=== PATIENT | male | born 1960 | race Caucasian/White ===

== ENCOUNTER 2019-01-30 14:30 | Outpatient (RCR) | payer BC, SELFPAY | END 2019-02-27 00:01 | LOC: WOUND 14:30 | PROVIDERS: Family Provider Internal Medicine; Visit Provider Nurse Practitioner Family | DX: L89.154 Pressure ulcer of sacral region, stage 4 (principal); F17.200 Nicotine dependence, unspecified, uncomplicated ==

== ENCOUNTER 2019-07-17 07:54 | Outpatient (CLI) | payer BC, SELFPAY ==
--- NOTE | 2019-07-17 08:00 | XR_ITS ---
WS: [id number] LUMBAR SPINE: 5 VIEWS TECHNIQUE: AP, obliques, lateral and L5-S1 spot. HISTORY: BACK PAIN WITH RADICULOPATHY COMPARISON: 07/16/2016 Mild straightening of the normal lumbar lordosis. No fractures. Severe degenerative disc space disease at L5-S1 with facet joint arthritis. Mild progression since th e prior study. Pedicles are all identified. Bilateral foraminal narrowing at L4-5 and L5-S1. At least moderate foraminal stenosis at these levels. SI joints are symmetric bilaterally. No soft tissue abnormalities. XR/XR lumbar spine min 4V [id number] IMPRESSION: 1. Mild progression of degenerative disc disease at L5-S1 and facet arthritis. 2. At least moderate bilateral foraminal stenosis L4-5 and L5-S1. 3. No fracture.
== END 2019-07-17 07:55 | disposition home or self-care (01) ==
LOC: RADWPI 07:58
PROVIDERS: Family Provider Internal Medicine; PCP Internal Medicine; Visit Provider Nurse Practitioner Family
DX: M54.16 Radiculopathy, lumbar region (principal); M51.37 Other intervertebral disc degeneration, lumbosacral region; M48.07 Spinal stenosis, lumbosacral region
CPT/HCPCS: 72114

== ENCOUNTER → 2019-08-22 08:08 | Outpatient (BNVA) | payer BC, SELFPAY | PROVIDERS: Family Provider Internal Medicine; PCP Internal Medicine; Referring Provider Licensed Practical Nurse; Visit Provider Anesthesiology Pain Medicine | DX: M51.17 Intervertebral disc disorders with radiculopathy, lumbosacral region (principal); M54.9 Dorsalgia, unspecified; M62.830 Muscle spasm of back | CPT/HCPCS: 99204 ==

== ENCOUNTER 2019-08-24 09:52 | Outpatient (CLI) | payer BC, SELFPAY ==
--- NOTE | 2019-08-24 10:13 | MR_ITS ---
WS: [id number] MRI LUMBAR SPINE NONCONTRAST TECHNIQUE: Sagittal T1, T2 and STIR imaging. Axial T1 and T2 imaging. CLINICAL INFORMATION: M51.17 Intervertebral disc disorders with radiculopathy, ... COMPARISON: MRI 07/2016 FINDINGS: Mild lumbar curve. No acute compression. Disc bulging worse L4-L5 and L5-S1. L1-L2: Normal. L2-L3: No significant disc bulging. Mild facet arthropathy. Spinal canal and foramen are patent. L3-L4: Mild annular bulging with slight effacement of ventral thecal sac. Mild facet arthropathy. Sma ll bilateral foraminal protrusions with mild bilateral foraminal narrowing. This is worse in the left . Slight contact of the exiting L3 nerve root. Moderate facet arthropathy. L4-L5: Mild disc bulging with moderate central canal stenosis. Impingement on the submandibular reces s bilaterally. Moderate facet arthropathy. Left foraminal protrusion with mild left foraminal narrowi ng. Right foramen is patent. L5-S1: Disc osteophyte complex with endplate ridging. Mild bilateral foraminal narrowing. Impingement on the traversing S1 nerve roots with mild central canal stenosis. Mild facet arthropathy. Visualized pelvic bony structures: Normal. Paravertebral soft tissues: Normal. Left L3 foraminal protrusion is progressed from previous. Other findings are not significantly unchan ged. Partially visualized bladder diverticuli. MR/MR lumbar spine wo con* [id number] IMPRESSION: 1. Moderate central canal stenosis L4-5 with impingement subarticular recess b ilaterally and traversing L5 nerve roots. 2. Left foraminal protrusion L4-5 with a small annular tear and contact of the exiting left L4 nerve root. Recommend correlation for left L4 nerve root sympt oms. 3. Small bilateral foraminal protrusions L3-4 worse in the left with contact o f the exiting left L3 nerve root. 4. Central disc bulging L5-S1 impinges the traversing S1 nerve roots bilateral ly. Mild left greater than right bony foraminal narrowing at this level.
--- NOTE | 2019-08-24 11:00 | XR_ITS ---
WS: [id number] LUMBAR SPINE FLEXION AND EXTENSION TECHNIQUE: 3 views of the lumbar spine: Lateral neutral, flexion, and extension views. CLINICAL INFORMATION: Low back pain COMPARISON: None. FINDINGS: Grade 1 anterolisthesis L4 on L5 measuring 6 mm. This is increased since July 17, 2019. This decreases slightly on flexion to 5.2 mm. This also decreases on extension to 5.4 mm. Mild disc space narrowing L4-L5 and L5-S1. Aortic Calcification. Moderate facet arthropathy L4-L5 and L5-S1. XR/XR lumbar spine f/e only [id number] IMPRESSION: Grade 1 anterolisthesis L4 on L5 in neutral measuring 6.1 mm not significantly changed on flexion-extension.
== END 2019-08-24 09:53 | disposition home or self-care (01) ==
LOC: RADWPI 09:56
PROVIDERS: Family Provider Internal Medicine; PCP Internal Medicine; Visit Provider Licensed Practical Nurse
DX: M51.17 Intervertebral disc disorders with radiculopathy, lumbosacral region (principal)
CPT/HCPCS: 72120; 72148

== ENCOUNTER → 2019-09-04 12:55 | Outpatient (BNVA) | payer BC, SELFPAY | PROVIDERS: Family Provider Internal Medicine; PCP Internal Medicine; Visit Provider Anesthesiology Pain Medicine | DX: M47.816 Spondylosis without myelopathy or radiculopathy, lumbar region (principal); M54.9 Dorsalgia, unspecified | CPT/HCPCS: 64493; 64494; J2001; J3490 ==

== ENCOUNTER → 2019-09-19 10:38 | Outpatient (BNVA) | payer BC, SELFPAY | PROVIDERS: Family Provider Internal Medicine; PCP Internal Medicine; Visit Provider Anesthesiology Pain Medicine | DX: M48.062 Spinal stenosis, lumbar region with neurogenic claudication (principal); M43.16 Spondylolisthesis, lumbar region; M47.816 Spondylosis without myelopathy or radiculopathy, lumbar region; M51.17 Intervertebral disc disorders with radiculopathy, lumbosacral region; M54.9 Dorsalgia, unspecified; M62.830 Muscle spasm of back; Z79.891 Long term (current) use of opiate analgesic | CPT/HCPCS: 99214 ==

== ENCOUNTER → 2019-10-03 13:07 | Outpatient (BNVA) | payer BC, SELFPAY | PROVIDERS: Family Provider Internal Medicine; PCP Internal Medicine; Visit Provider Anesthesiology Pain Medicine | DX: M47.816 Spondylosis without myelopathy or radiculopathy, lumbar region (principal); M48.062 Spinal stenosis, lumbar region with neurogenic claudication; M54.9 Dorsalgia, unspecified | CPT/HCPCS: 64493; 64494; 64495; J3490 ==

== ENCOUNTER → 2019-10-17 09:39 | Outpatient (BNVA) | payer BC, SELFPAY | PROVIDERS: Family Provider Internal Medicine; PCP Internal Medicine; Visit Provider Anesthesiology Pain Medicine | DX: M43.16 Spondylolisthesis, lumbar region (principal); M47.816 Spondylosis without myelopathy or radiculopathy, lumbar region; M48.062 Spinal stenosis, lumbar region with neurogenic claudication; M51.17 Intervertebral disc disorders with radiculopathy, lumbosacral region; M54.9 Dorsalgia, unspecified; M62.830 Muscle spasm of back; Z79.891 Long term (current) use of opiate analgesic | CPT/HCPCS: 99213 ==

== ENCOUNTER → 2019-10-22 14:10 | Outpatient (BNVA) | payer BC, SELFPAY | PROVIDERS: Family Provider Internal Medicine; PCP Internal Medicine; Visit Provider Anesthesiology Pain Medicine | DX: M47.816 Spondylosis without myelopathy or radiculopathy, lumbar region (principal); M48.062 Spinal stenosis, lumbar region with neurogenic claudication; Z79.891 Long term (current) use of opiate analgesic | CPT/HCPCS: 64635; 64636; J1030 ==

== ENCOUNTER → 2019-11-06 12:50 | Outpatient (BNVA) | payer BC, SELFPAY | PROVIDERS: Family Provider Internal Medicine; PCP Internal Medicine; Visit Provider Anesthesiology Pain Medicine | DX: M47.816 Spondylosis without myelopathy or radiculopathy, lumbar region (principal); M48.062 Spinal stenosis, lumbar region with neurogenic claudication; M54.9 Dorsalgia, unspecified; Z79.891 Long term (current) use of opiate analgesic | CPT/HCPCS: 64635; 64636; J1030 ==

== ENCOUNTER → 2019-11-19 11:55 | Outpatient (BNVA) | payer BC, SELFPAY | PROVIDERS: Family Provider Internal Medicine; PCP Internal Medicine; Visit Provider Nurse Practitioner Family | DX: Z11.59 Encounter for screening for other viral diseases (principal) | CPT/HCPCS: 87635 ==

== ENCOUNTER → 2019-11-26 10:20 | Outpatient (BNVA) | payer BC, SELFPAY | PROVIDERS: Family Provider Internal Medicine; PCP Internal Medicine; Visit Provider Anesthesiology Pain Medicine | DX: M48.062 Spinal stenosis, lumbar region with neurogenic claudication (principal); M47.816 Spondylosis without myelopathy or radiculopathy, lumbar region; M43.16 Spondylolisthesis, lumbar region; M51.17 Intervertebral disc disorders with radiculopathy, lumbosacral region; M54.9 Dorsalgia, unspecified; M62.830 Muscle spasm of back; Z79.891 Long term (current) use of opiate analgesic | CPT/HCPCS: 99213 ==

== ENCOUNTER 2019-12-11 15:21 | Outpatient (CLI) | payer BC, SELFPAY ==
--- NOTE | 2019-12-11 15:25 | XRR_ITS ---
PROCEDURE INFORMATION: Exam: XR Abdomen, 1 View Exam date and time: 12/11/2019 3:40 PM Age: 59 years old Clinical indication: Abdominal pain; Generalized; Prior surgery; Surgery type: Hernia mesh TECHNIQUE: Imaging protocol: XR of the abdomen. Views: Frontal supine view of the abdomen. 1 View. COMPARISON: CR XR KUB [id number] 09/27/2018 10:08 AM FINDINGS: Gastrointestinal tract: Normal. No bowel dilation. Bones/joints: Unremarkable. XR/XR abdomen 1V* [id number] IMPRESSION: No acute findings.
== END 2019-12-11 15:22 | disposition home or self-care (01) ==
LOC: RADWPI 15:22
PROVIDERS: Family Provider Internal Medicine; PCP Internal Medicine; Visit Provider Nurse Practitioner Family
DX: R10.32 Left lower quadrant pain (principal)
CPT/HCPCS: 74018

== ENCOUNTER 2019-12-17 08:34 | Emergency (ER) | payer BC, SELFPAY ==
[2019-12-17 08:36] VITALS: BP 148/76; PULSE 68; RESP 16; TEMP 36.6; O2SAT 99; BMI 25.2
--- NOTE | 2019-12-17 08:57 | W.ED.ABDPA2 ---
HPI - Abdominal Pain General: Chief Complaint: Abdominal Pain Stated Complaint: Abdominal Pain Time Seen by Provider: 12/17/19 08:49 History of Present Illness: HPI narrative: 59-year-old male presents emergency room complaining of generalized abdominal pain that began approximately 1 week ago. He was seen a week ago and found to's reportedly have had some microscopic hematuria he denies any dysuria urgency or frequency. He had normal bowel movement this morning he has not had any vomiting or diarrhea continues to have generalized abdominal discomfort refers to the left side of the umbilicus. MD elicited complaint: abdominal pain Pertinent past history: other (Previous abdominal wall hernia repair with mesh) Onset (ago): day(s) (6-7) Pain Consistency: constant Location: Periumbilical (Left side) Quality: cramping and aching Radiation: none Migration to: no migration Exacerbating factors: movement Relieving factors: nothing Associated Symptoms: Denies anorexia, belching, bloating, change in bowel habits, change in stool character, chills, coffee ground emesis, constipation, GI cramping, diarrhea, dyspepsia, dysuria, excessive flatus, fever(s), heartburn, hematochezia, hematuria, hematemesis, fecal incontinence, loose stools, melena, nausea, poor appetite, syncope and vomiting Review of Systems Const: Denies: fever(s) or chills ENMT: Denies: throat pain, ear or mastoid pain, nasal discharge or nasal congestion Card: Denies: syncope Resp: Denies: dyspnea, productive cough or non-productive cough GI: Denies: nausea, vomiting, hematemesis, coffee ground emesis, heartburn, diarrhea, constipation, bloating, GI cramping, belching, excessive flatus, fecal incontinence, change in bowel habits, change in stool character, hematochezia or melena : Denies: dysuria or hematuria Skin/Breast: Denies: rash or pruritus PFSH ED PFSH: Medical History Intervertebral disc disorder with radiculopathy of lumbosacral region Lumbar stenosis with neurogenic claudication Osteoarthritis of lumbar spine Spondylolisthesis at L4-L5 level Surgical History Amputation of digit of right hand H/O hernia repair Family History Grandfather Cancer Social History Smoking and tobacco status: former smoker Second hand smoke exposure: No Alcohol intake: current Household members: significant other Marital status: Life Partner Current occupational status: employed 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 [employer] History of recent travel: No Physical Exam Const: COMMON NORMALS: no acute distress GENERAL APPEARANCE: cooperative and comfortable ORIENTATION/CONSCIOUSNESS: Yes awake, Yes oriented to person, Yes oriented to place and Yes oriented to time HENMT: COMMON NORMALS: normocephalic, atraumatic and hearing grossly normal bilaterally HEAD & SCALP: normocephalic and atraumatic Neck/C-Spine: COMMON NORMALS: no JVD Resp: COMMON NORMALS: normal respiratory effort, No retractions, No use of accessory muscles and clear to auscultation bilaterally AUSCULTATION: clear to auscultation bilaterally Cardio: COMMON NORMALS: no JVD, regular rate, regular rhythm and No murmurs present (Cardio) RATE: regular rate RHYTHM: regular rhythm GI: COMMON NORMALS: Soft to palpation and No hepatosplenomegaly present AUSCULTATION: Yes normoactive bowel sounds PALPATION: Yes Soft to palpation, Yes Tenderness to palpation present (GI) (Diffuse), No Guarding due to palpation present (GI) and Yes No hepatosplenomegaly present Extremity: COMMON NORMALS: normal to inspection, capillary refill normal, no clubbing, cyanosis or edema, no calf tenderness and no pedal edema Neuro: SENSORIUM/ORIENTATION: Yes oriented to person, Yes oriented to place and Yes oriented to time Skin: COMMON NORMALS: no rashes or lesions noted GENERAL SKIN EXAM: no rashes or lesions noted Course Vital Signs: Vital signs: Vital Signs Temperature 97.8 F 12/17/19 08:36 Pulse Rate 75 12/17/19 12:00 Respiratory Rate 12 12/17/19 12:00 Blood Pressure 148/75 12/17/19 12:00 Pulse Oximetry 97 12/17/19 12:00 MDM - Abdominal Pain MDM Narrative: Medical decision making narrative: CT does not show any significant acute intra-abdominal pathology. abdominal pathology. He has asymptomatic cholelithiasis His liver functions are normal and his T bili is normal he does have asymptomatic cholelithiasis. He does have a fat-containing umbilical hernia that is nonreproducible but does not otherwise nontender if he does not manipulate it. We will discharge him refer him to surgery for evaluation for the umbilical hernia return if has further problems Lab Data: Labs: Lab Results 12/17/19 12/17/19 12/17/19 Range/Units 08:59 08:59 08:59 WBC 6.7 (4.0-10.0) 10^3/ uL RBC 4.79 (4.1-5.3) 10^6/u L Hgb 14.4 (11.7-16.6) g/dL Hct 44.4 (42.0-52.0) % MCV 92.7 (80-94) fL MCH 30.1 (28.0-34.0) pg MCHC 32.4 (30.0-36.0) g/dL RDW 13.2 (12.1-15.1) % Plt Count 333 (130-400) 10^3/c mm MPV 9.3 (7.4-10.4) fL Neut % (Auto) 55.6 % Lymph % (Auto) 29.4 % [place] % (Auto) 11.2 % Eos % (Auto) 2.5 % Baso % (Auto) 0.7 % Neut # (Auto) 3.72 (1.8-7.7) 10^3/u L Lymph # (Auto) 2.0 (0.8-4.8) 10^3/u L [place] # (Auto) 0.8 (0.2-0.9) 10^3/u L Eos # (Auto) 0.2 (0.0-0.8) 10^3/u L Baso # (Auto) 0.1 (0.0-0.1) 10^3/u L Nucleated RBC % (a uto) 0 % Nucleated RBCs # 0.0 /100WBC Sodium 138 (136-145) mmol/L Potassium 4.7 (3.5-5.1) mmol/L Chloride 103 (98-107) mmol/L Carbon Dioxide 24 (22-29) mmol/L Anion Gap 15.7 (5-19) BUN 16 (8-23) mg/dL Creatinine 1.1 (0.7-1.2) mg/dL GFR Calculation 68.3 L (90-130) mL/min Glucose 116 H (65-115) mg/dL Calculated Osmolal ity 288 (285-295) mOsm/k g Lactic Acid 1.1 (0.5-2.2) mmol/L Calcium 10.2 (8.5-10.5) mg/dL Total Bilirubin 0.4 (0.15-1.2) mg/dL AST 20 (0-40) U/L ALT 20 (0-41) U/L Alkaline Phosphata se 55 (40-130) IU/L Total Protein 7.2 (6.6-8.7) g/dL Albumin 4.5 (3.5-5.2) g/dL Globulin 2.7 (1.3-4.6) g/dL Lipase 40 (13-60) U/L Urine Color (Yellow) Urine Appearance (CLEAR) Urine pH (5-7) Ur Specific Gravit y (1.005-1.030) Urine Protein (Negative) Urine Glucose (UA) (Normal) Urine Ketones (Negative) Urine Blood (Negative) Urine Nitrate (Negative) Urine Bilirubin (Negative) Urine Urobilinogen (Negative) mg/dL Ur Leukocyte Sanna ase (Negative) 12/17/19 Range/Units 09:29 WBC (4.0-10.0) 10^3/ uL RBC (4.1-5.3) 10^6/u L Hgb (11.7-16.6) g/dL Hct (42.0-52.0) % MCV (80-94) fL MCH (28.0-34.0) pg MCHC (30.0-36.0) g/dL RDW (12.1-15.1) % Plt Count (130-400) 10^3/c mm MPV (7.4-10.4) fL Neut % (Auto) % Lymph % (Auto) % [place] % (Auto) % Eos % (Auto) % Baso % (Auto) % Neut # (Auto) (1.8-7.7) 10^3/u L Lymph # (Auto) (0.8-4.8) 10^3/u L [place] # (Auto) (0.2-0.9) 10^3/u L Eos # (Auto) (0.0-0.8) 10^3/u L Baso # (Auto) (0.0-0.1) 10^3/u L Nucleated RBC % (a uto) % Nucleated RBCs # /100WBC Sodium (136-145) mmol/L Potassium (3.5-5.1) mmol/L Chloride (98-107) mmol/L Carbon Dioxide (22-29) mmol/L Anion Gap (5-19) BUN (8-23) mg/dL Creatinine (0.7-1.2) mg/dL GFR Calculation (90-130) mL/min Glucose (65-115) mg/dL Calculated Osmolal ity (285-295) mOsm/k g Lactic Acid (0.5-2.2) mmol/L Calcium (8.5-10.5) mg/dL Total Bilirubin (0.15-1.2) mg/dL AST (0-40) U/L ALT (0-41) U/L Alkaline Phosphata se (40-130) IU/L Total Protein (6.6-8.7) g/dL Albumin (3.5-5.2) g/dL Globulin (1.3-4.6) g/dL Lipase (13-60) U/L Urine Color Yellow (Yellow) Urine Appearance Clear (CLEAR) Urine pH 5 (5-7) Ur Specific Gravit y 1.015 (1.005-1.030) Urine Protein Neg (Negative) Urine Glucose (UA) Norm (Normal) Urine Ketones Negative (Negative) Urine Blood Neg (Negative) Urine Nitrate Negative (Negative) Urine Bilirubin Neg (Negative) Urine Urobilinogen Norm (Negative) mg/dL Ur Leukocyte Sanna ase Negative (Negative) Discharge Plan Discharge Patient Disposition: Home Clinical Impression: Hernia, umbilical, Asymptomatic cholelithiasis Condition: Stable Prescriptions: No Action tizanidine 4 mg tablet 4 mg PO BID PRN (Reason: muscle spasticity) Qty: 60 RF: 0 losartan 50 mg tablet 50 mg PO DAILY RF: 0 lovastatin 40 mg tablet 40 mg PO DAILY RF: 0 hyoscyamine sulfate 0.125 mg tablet 0.125 mg PO QID RF: 0 pantoprazole 40 mg tablet,delayed release (DR/EC) 40 mg PO DAILY RF: 0 All Day Allergy (cetirizine) 10 mg capsule 10 mg PO DAILY RF: 0 glucosamine sulfate 500 mg capsule 500 mg PO BID RF: 0 omega-3 fatty acids 1,000 mg capsule 1,000 mg PO DAILY RF: 0 aspirin [Adult Aspirin Regimen] 81 mg tablet,delayed release (DR/EC) 81 mg PO DAILY RF: 0 metoprolol succinate 25 mg capsule,sprinkle,ER 24hr 25 mg PO .2 day RF: 0 multivitamin [One-A-Day Essential] Tablet 1 tab PO DAILY RF: 0 acetaminophen [Tylenol Extra Strength] 500 mg tablet 500 mg PO ONCE PRNRF: 0 gabapentin 300 mg capsule 300 mg PO TID MDD 3 Qty: 90 RF: 0 sodium chloride 0.9 % Solution 10 ml epidural ONCE Qty: 1 RF: 0 methylprednisolone acetate [Depo-Medrol] 40 mg/mL suspension 40 mg Infiltration ONCE Qty: 1 RF: 0 lidocaine (PF) 10 mg/mL (1 %) solution 10 mg SUBCUT ONCE Qty: 1 RF: 0 tramadol 50 mg tablet 50 mg PO TID PRN (Reason: pain) Qty: 90 RF: 1 methocarbamol [Robaxin-750] 750 mg tablet 750 mg PO BID Qty: 60 RF: 0 Discharge Orders: Discharge Order (Routine); Ordered 12/17/19 Ordered By: Jeffry Freeman Referrals: Denise Vincent MD [Primary Care Provider] - Patient Instructions: Umbilical Hernia (ED) Activity Restrictions/Additional Instructions: Limit lifting to 10 pounds. Case management will call with follow-up with surgery for your umbilical hernia Discharge Date/Time: 12/17/19 12:00 Coding Level of Care Code ED Store Protection Specialist for Chg Fwd Exam Comprehensive
--- NOTE | 2019-12-17 08:58 | CT_ITS ---
WS: [id number] CT ABDOMEN PELVIS TECHNIQUE: Contrast-enhanced CT of the abdomen and pelvis with coronal and sagittal reformatted image s. CLINICAL INFORMATION: abd pain COMPARISON: None. DLP: 662.[address] scans at [facility] use at least one of these dose optimization techniques: automat ed exposure control; mA and/or kV adjustment per patient size (includes targeted exams where dose is matched to clinical indication); or iterative reconstruction. FINDINGS: Mild diffuse fatty infiltration liver. Normal portal vein and splenic vein. Normal GE junction. Splen ic granulomas. Lung bases are well aerated. Cholelithiasis. Normal pancreas. Adrenal glands are john l. No hydronephrosis. Normal renal parenchymal enhancement. Small left renal cysts the largest measur ing 1.3 CM. Mild aortic atheromatous disease. Retroaortic left renal vein. No significant abdominal a ortic aneurysm. Bilateral bladder diverticuli measuring 2.2 cm on the left and 1.7 cm in the right. Additional smalle r diverticulum measuring 9 mm. Normal sigmoid colon. No evidence of small or large bowel obstruction. Fat-containing umbilical hernia. No abdominal lymphadenopathy. No inguinal lymphadenopathy. No herni ated bowel. CT/CT abdomen pelvis w con* [id number] IMPRESSION: 1. Mild diffuse fatty infiltration of the liver. 2. Cholelithiasis. This could be followed up with ultrasound. 3. No hydronephrosis in either kidney. 4. Tiny fat-containing umbilical hernia. No herniated bowel. 5. Several bladder diverticuli the largest measuring 2.2 and 1.7 CM. 6. No other significant findings. Notified Jeffry Freeman DO at 12/17/2019 10:37 AM.
--- NOTE | 2019-12-17 08:58 | ECG_ITS ---
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 Measurements Intervals [place] Rate: 82 P: 55 OR: 145 QRS: 75 QRSD: 100 T: 77 QT: 364 QTc: 427 Interpretive Statements SINUS RHYTHM Early repolarization changes in the inferior leads Compared to ECG 04/19/2017 14:19:48 No significant changes Electronically Signed On 12-17-2019 21:39:54 CDT by Jan Lacey M.D. [email or web address]
--- NOTE | 2019-12-17 08:58 | XRR_ITS ---
PROCEDURE INFORMATION: Exam: XR Chest, 1 View Exam date and time: 12/17/2019 9:06 AM Age: 59 years old Clinical indication: Cough and dyspnea; Prior surgery; Surgery type: Hernia; Additional info: Dyspnea/cough TECHNIQUE: Imaging protocol: XR of the chest Views: 1 view. COMPARISON: CR Chest 1 [place] [id number] 04/19/2017 8:39 AM FINDINGS: Lungs: Unremarkable. No consolidation. Pleural space: Unremarkable. No pleural effusion. No pneumothorax. Heart/Mediastinum: Unremarkable. No cardiomegaly. Bones/joints: Unremarkable. XR/XR chest 1V portable [id number] IMPRESSION: No acute findings.
[2019-12-17 09:12] LABS: Basophils # 0.1 10^3/uL (0.0-0.1); Basophils % 0.7 %; Eosinophils # 0.2 10^3/uL (0.0-0.8); Eosinophils % 2.5 %; Hematocrit 44.4 % (42.0-52.0); Hemoglobin 14.4 g/dL (11.7-16.6); Lymphocytes % 29.4 %; Mean Corpuscular HGB Conc 32.4 g/dL (30.0-36.0); Mean Corpuscular Hemoglobin 30.1 pg (28.0-34.0); Mean Corpuscular Volume 92.7 fL (80-94); Mean Platelet Volume 9.3 fL (7.4-10.4); Monocytes # 0.8 10^3/uL (0.2-0.9); Monocytes % 11.2 %; Neutrophils # 3.72 10^3/uL (1.8-7.7); Neutrophils % 55.6 %; Nucleated Red Blood Cells % 0 %; Platelet Count 333 10^3/cmm (130-400); Red Blood Count 4.79 10^6/uL (4.1-5.3); Red Cell Distribution Width 13.2 % (12.1-15.1); White Blood Count 6.7 10^3/uL (4.0-10.0)
[2019-12-17 09:31] LABS: Add Urine Microscopic? NO
[2019-12-17 09:32] LABS: Lactic Sepsis W/Reflex 1.1 mmol/L (0.5-2.2)
[2019-12-17 09:33] LABS: Alanine Aminotransferase 20 U/L (0-41); Albumin Level 4.5 g/dL (3.5-5.2); Alkaline Phosphatase 55 IU/L (40-130); Anion Gap 15.7 (5-19); Aspartate Amino Transferase 20 U/L (0-40); Blood Urea Nitrogen 16 mg/dL (8-23); Calcium 10.2 mg/dL (8.5-10.5); Carbon Dioxide 24 mmol/L (22-29); Chloride 103 mmol/L (98-107); Globulin 2.7 g/dL (1.3-4.6); Glomerular Filtration Rate 68.3 mL/min (90-130); Glucose 116 mg/dL (65-115); Lipase 40 U/L (13-60); Osmolality Calculated 288 mOsm/kg (285-295); Potassium 4.7 mmol/L (3.5-5.1); Sodium 138 mmol/L (136-145); Total Bilirubin 0.4 mg/dL (0.15-1.2); Total Protein 7.2 g/dL (6.6-8.7)
[2019-12-17 09:35] LABS: Bilirubin Urine Neg (Negative); Blood Urine Neg (Negative); Glucose Urine UA Norm (Normal); Ketones Urine Negative (Negative); Leukocyte Esterase Urine Negative (Negative); Nitrate Urine Negative (Negative); Protein Urine Neg (Negative); Specific Gravity, Urine 1.015 (1.005-1.030); Urine Appearance Clear (CLEAR); Urine Color Yellow (Yellow); Urobilinogen Urine Norm (Negative); pH Urine 5 (5-7)
[2019-12-17] MEDS: iohexol 300 mg/mL 100 mL Btl IV (09:48)
[2019-12-17] MEDS: sodium chloride 0.9% 1,000 ML 999 ML IV (10:04)
[2019-12-17 11:23] VITALS: BP 127/78; PULSE 60; RESP 16; O2SAT 100
[2019-12-17 12:00] VITALS: BP 148/75; PULSE 75; RESP 12; O2SAT 97
--- NOTE | 2019-12-18 09:28 | DCPLANNER ---
project construction manager had message to schedule a follow up appointment for patient with general surgery. project construction manager called [facility], spoke with Chiquis, gave clinic patients information. project construction manager was told that patients information would be printed and reviewed. Clinic will call patient with appointment information.
--- NOTE | 2019-12-19 13:11 | DCPLANNER ---
Patient has a follow up appointment scheduled for , December 20, 2019 at 8:[address] Tafoya at [facility]. Clinic will call patient with appointment information.
--- NOTE | 2019-12-21 18:26 | DCPLANNER ---
Patient had a follow up appointment scheduled for 12.20.19 with [facility] - patient did attend appointment.
== END 2019-12-17 12:00 | disposition home or self-care (01) ==
PROVIDERS: Emergency Provider Family Medicine; PCP Internal Medicine
DX: K42.9 Umbilical hernia without obstruction or gangrene (principal); K80.20 Calculus of gallbladder without cholecystitis without obstruction; Z79.82 Long term (current) use of aspirin; Z87.891 Personal history of nicotine dependence
CPT/HCPCS: 12345; 71045; 74177; 80053; 81003; 83605; 83690; 85025; 93005; 96360; 99282; 99283; J7030; Q9967

== ENCOUNTER 2019-12-24 13:36 | Outpatient (CLI) | payer BC, SELFPAY ==
--- NOTE | 2019-12-24 13:30 | US_ITS ---
WS: [id number] RIGHT UPPER QUADRANT ULTRASOUND HISTORY: CHOLELITHIASIS COMPARISON: None available. Liver: 15.6 cm in length. Normal size liver. No bile duct dilatation or mass. Gallbladder: Normal size gallbladder with numerous stones. No wall thickening. No pericholecystic flu id. CBD: 0.3 cm Pancreas: Normal size and echogenicity. Right kidney: 9.8 cm in length. Normal size and echogenicity. No hydronephrosis or mass. Aorta and IVC: Unremarkable abdominal aorta and IVC. No ascites. US/US gall bladder [id number] IMPRESSION: Cholelithiasis without acute cholecystitis.
== END 2019-12-24 13:37 | disposition home or self-care (01) ==
PROVIDERS: PCP Internal Medicine; Visit Provider Surgery
DX: K80.20 Calculus of gallbladder without cholecystitis without obstruction (principal)
CPT/HCPCS: 76705

== ENCOUNTER → 2020-01-03 14:09 | Outpatient (BNVA) | payer BC, SELFPAY | PROVIDERS: PCP Internal Medicine; Visit Provider Surgery | DX: Z11.59 Encounter for screening for other viral diseases (principal); K80.20 Calculus of gallbladder without cholecystitis without obstruction | CPT/HCPCS: 87635 ==

== ENCOUNTER 2020-01-08 06:26 | Day surgery (SDC) | payer BC, SELFPAY ==
[2020-01-07 15:04] VITALS: BMI 25.0
[2020-01-08] VITALS (11 sets, daily range): BP systolic 115–162; BP diastolic 72–96; PULSE 56–83; RESP 13–22; TEMP 36.5–37; O2SAT 93–100
--- NOTE | 2020-01-08 06:52 | W.PM.OPSUD ---
Surgery/Procedure H&P Update DATE OF PROCEDURE: January 08, 2020 DATE H&P PERFORMED: 12/20/19 H&P UPDATE INFORMATION: I have reviewed H&P completed within last 30 days, I have examined patient prior to procedure and No changes to prior documentation PREOP DIAGNOSIS: Symptomatic cholelithiasis and umbilical hernia PRIMARY INDICATION FOR PROCEDURE: The same PLANNED PROCEDURE: Operation Date: 01/08/20 08:05 Proposed Procedures p Laparoscopic Cholecystectomy 06828 K80.20(Not Applicable) - Rajesh Tafoya MD
[2020-01-08] MEDS: sodium chloride 0.9% 1,000 ML 30 ML IV (06:53)
--- NOTE | 2020-01-08 07:50 | ANES.PREANE2 ---
Pre-Anesthetic Assessment Pre-Anesthetic Assessment: Height/Weight: Height 1.83 m Weight 83.915 kg Temp Pulse Resp BP Pulse Ox 97.7 F 63 16 142/87 100 01/08/20 06:35 01/08/20 06:35 01/08/20 06:35 01/08/20 06:35 01/08/20 06:35 Preop Diagnosis: Symptomatic cholelithiasis and umbilical hernia Proposed Procedure: Operation Date: 01/08/20 08:05 Proposed Procedures p Laparoscopic Cholecystectomy 91741 K80.20(Not Applicable) - Rajesh Tafoya MD Familial anesthetic complications: None Was Beta Gris taken within 24 hours: Yes Last intake: Intake Last Liquid Date 01/07/20 Last Liquid Time 23:00 Last Solid Date 01/07/20 Last Solid Time 17:00 Social: Social History: No alcohol and No tobacco Comment: Vapes Exam: Pre-Anes Outpt Exam: alert, oriented x 3, clear to auscultation bilaterally and regular rate & rhythm Airway: Cervical ROM: WNL MP: 2 Dentition: False CV/HEM: CV/HEM: HTN GI: GI: GERD Musc/skel: Musc/skel: Scoliosis Neuropsych: Neuropsych: Neuropathy Comments: feet numb Anesthetic Plan: ASA status: 2 Anesthesia: General Risk of > 500 ml blood loss (7ml/kg in children): No Meds/Allergies Current Medications: Current Medications Generic Name Dose Route Start Last Admin Trade Name Freq PRN Reason Stop Dose Admin Sodium Chloride 1,000 mls @ 30 ml s/hr 01/08/20 06:45 01/08/20 06:53 Sodium Chloride 0.9% IV 01/09/20 06:44 30 mls/hr .Q24H KARMEN Administration PFSH Anesthesia PFSH: Medical History (Updated 12/25/19 @ 00:00 by ) Intervertebral disc disorder with radiculopathy of lumbosacral region Lumbar stenosis with neurogenic claudication Osteoarthritis of lumbar spine Spondylolisthesis at L4-L5 level Surgical History Amputation of digit of right hand H/O hernia repair Family History Grandfather Cancer Social History Smoking and tobacco status: former smoker Second hand smoke exposure: No Alcohol intake: current Household members: significant other Marital status: Life Partner Current occupational status: employed 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
[2020-01-08] MEDS: lidocaine 2% INJ 20 mL INJECTION (09:00)
--- NOTE | 2020-01-08 09:57 | P.OP_ITS ---
Operative Report Date of procedure: January 08, 2020 Pre-op Diagnosis: Symptomatic cholelithiasis and umbilical hernia Post-op diagnosis: other (Extensive intra-abdominal adhesions) Procedure Done: Laparoscopic cholecystectomy and extensive intra-abdominal adhesiolysis and laparoscopic umbilical hernia repair without mesh placement Implants: Large piece of Surgicel in the gallbladder fossa Specimens removed/disposition: Hernial sac and contents Gallbladder and contents Surgeon: Rajesh Tafoya Cable Ferryboat Operator: Surgical techs Keagan Lima and Venita assembler surgical garment student Anesthesia: General (shank threader Marta) Estimated blood loss (mL): 25 Condition: stable Disposition: same day Brief History: This is a pleasant 59 years old gentleman referred to my practice and was found to have symptomatic cholelithiasis in addition to fatty liver and umbilical hernia. Plan of care; After thorough history physical examination and reviewing the chart ,I counseled the patient for laparoscopic cholecystectomy possible open and umbilical hernia repair, indications risks including but not limited injury to the common bile duct and other viscera.benefits and alternatives all discussed with the patient, and she did agree to proceed. All questions have been answered and all concerns have been addressed to patient's satisfaction. Rationale was carefully and clearly discussed with the patient.Appropriate informed consent have been reviewed and signed. Procedure: Patient was identified in the holding area and taken back to the operative suite, placed in supine position intubated by anesthesia . Time-out was done verifying the patient's name/date of /planned procedure and destination after the procedure, all were in agreement. SCDs confirmed to be functioning, preoperative antibiotics administered per protocol, and beta apurva protocol was confirmed. Patient was appropriately secured to the table, footboard was applied to the OR table, before prep and drape anesthesia was asked to tilt the table back and forth to make sure that the patient is appropriately secured and she was. Prep and drape of the abdomen was done under the usual sterile technique, followed by that umbilical skin incision,skin incision was done by a 15 blade knife, hernial sac in the form of preperitoneal fat was appreciated and dissected and sent it out for patholog, the fascial defect estimated to be around one inch in diameter and stay sutures were applied to the fascia and Crocker trocar technique was used to enter the abdominal without injuring any abdominal viscera, started by low flow gas insufflation followed by a high flow, started with a 10 mm laparoscope and under direct vision there was no evidence of any injuries, the scope then switched to a 30? ,10 millimeter scope and under direct visualization 5 millimeter trocar was inserted in the epigastric region followed by two 5 mm trocars were inserted in the right upper quadrant that was done after injection of local lidocaine 2% at all incision sites. Patient was found to have upper central intra-abdominal adhesions that were extensive in nature in the form of omental adhesion and under direct visualization via the 5 mm trochars and LigaSure device I was able to take the adhesions down safely and the time exceeded 1 hour of the operation time due to the extensive nature of the adhesiolysis. At that time I deviated my attention for the gallbladder surgery component Gallbladder showed chronic calculus cholecystitis with fatty liver Patient was then positioned in the head up and tilted to the left Ratcheted forceps were introduced into the lateral most 5mm port and was applied unto the fundus of the gallbladder cephalad and using Bullet forceps the infundibulum of the gallbladder was retracted laterally. Using [place] forceps then L-hook cautery to dissect the peritoneum overlying the Calot's triangle whihc was then opened medially and laterally until the cystic duct and the cystic artery were skeletonized. Dissection was carried along the body of the gallbladder and after ensuring critical view of safety was identfied. Cystic duct and cystic artery where seen connected to the gallbladder. Clips were applied on the cystic duct towards the common bile duct 1 towards the gallbladder then divided is in sharp scissors, 2 clips were then applied onto the cystic artery and 1 towards the gallbladder and divided by sharp scissors. Additional traversing vessel was clipped and divided Dissection was then carried along of the gallbladder from the gallbladder fossa using cautery as well as sharp dissection with heat energy. The gallbladder then was dissected out from the gallbladder fossa totally , cholecystectomy was then achieved and was placed in an Endo Catch bag and then retrieved from the Crocker trocar site under direct visualization using a 5 mm 30? scope through the epigastric trocar, specimen was then passed to the circulating nurse to go for permanent pathology,irrigation and hemostasis was done to the gallbladder fossa after hemostasis was secured, final survey lapar oscopy was done that showed no injuries. Suction irrigation was obtained The umbilical hernia fascial defect measures about 1 inch in diameter was then closed using interrupted Vicryl sutures using a fascial closure device ;John Davalos under direct visualization and PDS sutures. Gas was allowed to deflate,Trocars were then taken out under direct vision there was no evidence of bleeding Specimen was passed to the circulating nurse for permanent pathology. No drains were placed and the supraumbilical incision as well as all trocar sites were closed by by 4-0 Monocryl to approximate the skin edges of the supraumbilical incision, dressing was applied in the form of Dermabond and the patient patient got extubated and was taken to recovery area in a stable condition. Count of sponges, needles and instruments were completed at the end of the procedure I was present for the whole entire procedure.
[2020-01-08] MEDS: ondansetron 2 mg/ML SDV 2 mL 4 MG IVP ×2 (10:28→10:39)
[2020-01-08] MEDS: HYDROcodone-acetaminophen 5-325 mg Tablet 1 TAB PO (11:32)
--- NOTE | 2020-01-08 17:29 | ANE.PACU2 ---
Inpatient post-anesthesia follow up: Airway intact: Yes Vital signs: Temperature 98.6 F Pulse Rate 83 Respiratory Rate 18 Blood Pressure 140/85 Pulse Oximetry 98 Oxygen Delivery Me thod Room Air Oxygen Flow Rate 6 Fraction of Inspir ed Oxygen Hydration adequate: Yes Nausea and vomiting: No Pain level: 1 Mental status: Baseline
== END 2020-01-08 12:15 | disposition home or self-care (01) ==
PROVIDERS: PCP Internal Medicine; Visit Provider Surgery
PROC: 0FT44ZZ Resection of Gallbladder, Percutaneous Endoscopic Approach (ICD-10-PCS; CPT 47562; principal; 2020-01-08 08:05)
PROC: (CPT 47562; 2020-01-08 08:05)
PROC: (CPT 47562; 2020-01-08 08:05)
DX: K80.10 Calculus of gallbladder with chronic cholecystitis without obstruction (principal); K42.9 Umbilical hernia without obstruction or gangrene; K66.0 Peritoneal adhesions (postprocedural) (postinfection); K76.0 Fatty (change of) liver, not elsewhere classified; Z79.82 Long term (current) use of aspirin; Z87.891 Personal history of nicotine dependence
CPT/HCPCS: 47562; 49329; 49652; 12345; 88302; 88304; J0131; J0690; J1100; J2250; J2405; J2704; J2710; J3010; J3490; J7030

== ENCOUNTER → 2020-03-06 08:26 | Outpatient (BNVA) | payer OTHER, SELFPAY | PROVIDERS: PCP Internal Medicine; Visit Provider Anesthesiology Pain Medicine | DX: M62.830 Muscle spasm of back (principal); M48.062 Spinal stenosis, lumbar region with neurogenic claudication; M51.17 Intervertebral disc disorders with radiculopathy, lumbosacral region; M54.9 Dorsalgia, unspecified; M43.16 Spondylolisthesis, lumbar region; M47.816 Spondylosis without myelopathy or radiculopathy, lumbar region | CPT/HCPCS: 99213; 99214 ==

== ENCOUNTER → 2020-04-03 08:20 | Outpatient (BNVA) | payer OTHER, SELFPAY | PROVIDERS: PCP Internal Medicine; Visit Provider Anesthesiology Pain Medicine | DX: M43.16 Spondylolisthesis, lumbar region (principal); M48.062 Spinal stenosis, lumbar region with neurogenic claudication; M47.816 Spondylosis without myelopathy or radiculopathy, lumbar region; M51.17 Intervertebral disc disorders with radiculopathy, lumbosacral region; M62.830 Muscle spasm of back; M54.9 Dorsalgia, unspecified; Z79.891 Long term (current) use of opiate analgesic | CPT/HCPCS: 99214 ==

== ENCOUNTER → 2020-04-17 10:09 | Outpatient (BNVA) | payer OTHER, SELFPAY | PROVIDERS: PCP Internal Medicine; Visit Provider Anesthesiology Pain Medicine | DX: M79.18 Myalgia, other site (principal); M48.062 Spinal stenosis, lumbar region with neurogenic claudication; M51.17 Intervertebral disc disorders with radiculopathy, lumbosacral region; M54.9 Dorsalgia, unspecified; M43.16 Spondylolisthesis, lumbar region; M47.816 Spondylosis without myelopathy or radiculopathy, lumbar region; Z79.891 Long term (current) use of opiate analgesic | CPT/HCPCS: 20553; 99214; J1030; J3490 ==

== ENCOUNTER → 2020-04-25 11:51 | Outpatient (BNVA) | payer OTHER, SELFPAY | PROVIDERS: PCP Internal Medicine | DX: Z20.828 Contact with and (suspected) exposure to other viral communicable diseases (principal) | CPT/HCPCS: 87635 ==

== ENCOUNTER → 2020-05-15 10:46 | Outpatient (BNVA) | payer OTHER, SELFPAY | PROVIDERS: PCP Internal Medicine; Visit Provider Anesthesiology Pain Medicine | DX: M62.830 Muscle spasm of back (principal); M48.062 Spinal stenosis, lumbar region with neurogenic claudication; M51.17 Intervertebral disc disorders with radiculopathy, lumbosacral region; M54.9 Dorsalgia, unspecified; M43.16 Spondylolisthesis, lumbar region; M47.816 Spondylosis without myelopathy or radiculopathy, lumbar region; Z79.891 Long term (current) use of opiate analgesic | CPT/HCPCS: 99214 ==

== ENCOUNTER → 2020-06-18 08:08 | Outpatient (BNVA) | payer OTHER, SELFPAY | PROVIDERS: PCP Internal Medicine; Visit Provider Anesthesiology Pain Medicine | DX: G89.29 Other chronic pain (principal); M62.830 Muscle spasm of back; M48.062 Spinal stenosis, lumbar region with neurogenic claudication; M54.9 Dorsalgia, unspecified; M51.17 Intervertebral disc disorders with radiculopathy, lumbosacral region; M43.16 Spondylolisthesis, lumbar region; M47.816 Spondylosis without myelopathy or radiculopathy, lumbar region; Z79.891 Long term (current) use of opiate analgesic | CPT/HCPCS: 99214 ==

== ENCOUNTER → 2020-06-25 12:56 | Outpatient (BNVA) | payer OTHER, SELFPAY | PROVIDERS: PCP Internal Medicine; Visit Provider Anesthesiology Pain Medicine | DX: M79.18 Myalgia, other site (principal); M43.16 Spondylolisthesis, lumbar region; M51.17 Intervertebral disc disorders with radiculopathy, lumbosacral region; M47.816 Spondylosis without myelopathy or radiculopathy, lumbar region; M48.062 Spinal stenosis, lumbar region with neurogenic claudication; M54.9 Dorsalgia, unspecified; Z79.891 Long term (current) use of opiate analgesic | CPT/HCPCS: 20553; 99215; J1030; J3490 ==

== ENCOUNTER → 2020-07-01 12:32 | Outpatient (BNVA) | payer OTHER, SELFPAY | PROVIDERS: PCP Internal Medicine; Visit Provider Anesthesiology Pain Medicine | DX: M54.16 Radiculopathy, lumbar region (principal); M48.062 Spinal stenosis, lumbar region with neurogenic claudication; Z79.891 Long term (current) use of opiate analgesic | CPT/HCPCS: 64483; 64484; J1040; J3490 ==

== ENCOUNTER 2020-07-10 11:19 | Outpatient (CLI) | payer OTHER, SELFPAY ==
--- NOTE | 2020-07-10 11:37 | XR_ITS ---
WS: [id number] LUMBAR SPINE FLEXION AND EXTENSION TECHNIQUE: 3 views of the lumbar spine: Lateral neutral, flexion, and extension views. CLINICAL INFORMATION: M47.816 - Spondylosis without myelopathy or radiculopathy... COMPARISON: August 24, 2019 FINDINGS: 6 mm anterolisthesis L4 on L5 the neutral position. No significant instability on flexion-extension. Disc space narrowing worse L5-S1. Moderate facet arthropathy L4-5 and L5-S1. Aortic calcification XR/XR lumbar spine f/e only [id number] IMPRESSION: 6 mm anterolisthesis L4 on L5 in the neutral position. No instability on flexio n-extension
--- NOTE | 2020-07-10 11:45 | MR_ITS ---
WS: [id number] MRI LUMBAR SPINE NONCONTRAST TECHNIQUE: Sagittal T1, T2 and STIR imaging. Axial T1 and T2 imaging. CLINICAL INFORMATION: INTERVERTEBRAL DISC DISORDERS WITH RADICULOPATHY COMPARISON: MRI August 24, 2019 FINDINGS: Mild lumbar curve. No acute compression. Mild disc bulging L4-L5 and L5-S1. L1-L2: Normal. L2-L3: Normal. L3-L4: Mild annular bulging. Slight effacement of the ventral thecal sac. Small bilateral foraminal p rotrusions with mild bilateral foraminal narrowing. Mild facet arthropathy. L4-L5: Mild annular bulging. Moderate central canal stenosis. Impingement traversing L5 nerve roots b ilaterally. Moderate facet arthropathy. Left eccentric disc bulging with a small annular fissure with mild left foraminal narrowing. Moderate facet arthropathy. L5-S1: Mild disc bulging with slight effacement of ventral thecal sac. Mild central canal stenosis. C ontact of the traversing S1 nerve roots bilaterally. Mild right foraminal narrowing. Moderate facet a rthropathy. Visualized pelvic bony structures: Normal. Paravertebral soft tissues: Normal. MR/MR lumbar spine wo con* [id number] IMPRESSION: 1. No significant changes since August 24, 2019. 2. Moderate central canal stenosis L4-5 with impingement traversing L5 nerve r oots. 3. Small left foraminal protrusion L4-5 with contact of the exiting left L4 ne rve root. 4. Small shallow central protrusion L5-S1 with mild central canal stenosis and slight contact of the traversing S1 nerve roots bilaterally. 5. Mild right L5-S1 foraminal narrowing. 6. Small left foraminal protrusion L3-4 contacts the exiting left L3 nerve chadwick t. 7. Moderate facet arthropathy L4-L5 and L5-S1.
== END 2020-07-10 11:20 | disposition home or self-care (01) ==
PROVIDERS: PCP Internal Medicine; Visit Provider Anesthesiology Pain Medicine
DX: M51.16 Intervertebral disc disorders with radiculopathy, lumbar region (principal); M47.816 Spondylosis without myelopathy or radiculopathy, lumbar region; M48.061 Spinal stenosis, lumbar region without neurogenic claudication; M51.26 Other intervertebral disc displacement, lumbar region; M51.27 Other intervertebral disc displacement, lumbosacral region; M47.817 Spondylosis without myelopathy or radiculopathy, lumbosacral region
CPT/HCPCS: 72120; 72148

== ENCOUNTER → 2020-07-15 12:27 | Outpatient (BNVA) | payer OTHER, SELFPAY | PROVIDERS: PCP Internal Medicine; Visit Provider Anesthesiology Pain Medicine | DX: M54.16 Radiculopathy, lumbar region (principal); M48.062 Spinal stenosis, lumbar region with neurogenic claudication; Z79.891 Long term (current) use of opiate analgesic | CPT/HCPCS: 64483; 64484; J1040; J3490 ==

== ENCOUNTER → 2020-07-30 09:58 | Outpatient (BNVA) | payer OTHER, SELFPAY | PROVIDERS: PCP Internal Medicine; Visit Provider Anesthesiology Pain Medicine | DX: M51.17 Intervertebral disc disorders with radiculopathy, lumbosacral region (principal); M48.062 Spinal stenosis, lumbar region with neurogenic claudication; M43.16 Spondylolisthesis, lumbar region; M47.816 Spondylosis without myelopathy or radiculopathy, lumbar region; M54.9 Dorsalgia, unspecified; M62.830 Muscle spasm of back; M79.604 Pain in right leg; Z79.891 Long term (current) use of opiate analgesic | CPT/HCPCS: 99214 ==

== ENCOUNTER 2020-08-07 09:29 | Outpatient (CLI) | payer OTHER, SELFPAY ==
[2020-08-07 09:46] VITALS: BMI 27.3
--- NOTE | 2020-08-07 09:50 | ECG_ITS ---
[facility] Test Date: 2020-08-07 Pat Name: Gertrude Tan Department: Room: Gender: Male Chronograph Operator: : 1960 Requested By: Denise Hoffman Order Number: [id number] Carina MD: Hugo Moraes M.D. Interpretive Statements NAME OF STUDY: LEXISCAN SESTAMIBI STRESS TEST INDICATION: [Chest Pain, ] Procedure: At the baseline, the blood pressure was 143/79 mmHg with a heart rate of 78 bpm. The electrocardiogram showed normal sinus rhythm, normal axis with normal ST and T's. The Lexiscan was infused over a period of 20 seconds. A total of 0.4 mg of Lexiscan was infused. The stress phase was continued for a total of 5 minutes. Heart rate was at the end of stress phase was 89 bpm and a blood pressure of 128/69 mmHg. The EKG at the peak infusion revealed since normal sinus rhythm with no significant ST-T wave changes. Sestamibi was injected 20 seconds after the Lexiscan infusion. Blood pressure at the end of recovery phase was 141/72 mmHg with a heart rate of 91 bpm. Conclusion: 1. Normal EKG response to Lexiscan infusion 2. No Lexiscan induced chest pain or cardiac arrhythmia. 3. Normal blood pressure and heart rate response. 4. Sestamibi/sestamibi perfusion scan pending; see separate report. Electronically Signed On 09-23-2020 15:01:38 CDT by Hugo Moraes M.D. [email or web address]
--- NOTE | 2020-08-07 09:50 | NMCV_ITS ---
NM hanny perf SPECT r/s* [id number] Gertrude Tan Age: 60 Gender: M : 1960 Exam Date: 08/07/2020 10:39 Ordering Phys: Denise Vincent MD Technologist: MEDARDO Meier Exam Location: [facility] Indications: CAD STRESS TEST Please see separate stress test report in [facility] for full findings IMAGE PROTOCOL Rest/Stress 1 Lexiscan Day Radiopharmaceutical Dose (mCi) Administration Site Administered by Rest: Tc-99m 10.8 IV MEDARDO Goodrich Sestamibi Stress:Tc-99m 32.6 IV MEDARDO Goodrich Sestamibi Rest: 07-Aug-2020 60 Discovery 630 Stress: 07-Aug-2020 30 Discovery 630 0.4mg Lexiscan. Images obtained in supine and prone position. SPECT RESULTS Technical Quality: Excellent Raw Data Analysis: Normal Image Corrections: No attenuation or motion correction applied Summed Stress Score: 0 Summed Rest Score: 0 Summed Difference Score: 0 PERFUSION FINDINGS There is reduced radiotracer uptake in the inferior wall, likely diaphragmatic attenuation artifact. No evidence of ischemia FUNCTIONAL RESULTS (calculated via Gated SPECT) Stress Image LV EF (%): 69 Stress EDV (mL):81 TID: 1 Stress ESV (mL):25 FUNCTIONAL FINDINGS: There is normal left ventricular systolic function. IMPRESSIONS 1. Normal myocardial perfusion imaging. There is reduced uptake of radiotracer in the inferior wall likely secondary to diaphragmatic attenuation artifact. No evidence of ischemia 2. LV systolic function is normal Hugo Moraes MD (Electronically Signed) Final Date: 07 August 2020 12:43 S
[2020-08-07] MEDS: regadenoson 0.4 Mg/5 ml Syringe IVP (11:38)
[2020-08-07 11:47] VITALS: BP 141/72; PULSE 85
== END 2020-08-07 09:30 | disposition home or self-care (01) ==
LOC: CDL 09:31
PROVIDERS: PCP Internal Medicine; Visit Provider Internal Medicine
DX: R07.9 Chest pain, unspecified (principal); I25.10 Atherosclerotic heart disease of native coronary artery without angina pectoris
CPT/HCPCS: 78452; 93017; A9500; J2785

== ENCOUNTER → 2020-09-25 12:34 | Outpatient (BNVA) | payer OTHER, SELFPAY | PROVIDERS: PCP Internal Medicine; Visit Provider Anesthesiology Pain Medicine | DX: M48.062 Spinal stenosis, lumbar region with neurogenic claudication (principal); M51.17 Intervertebral disc disorders with radiculopathy, lumbosacral region; M43.16 Spondylolisthesis, lumbar region; M47.816 Spondylosis without myelopathy or radiculopathy, lumbar region; M79.604 Pain in right leg; M62.830 Muscle spasm of back; Z79.891 Long term (current) use of opiate analgesic; Z87.891 Personal history of nicotine dependence | CPT/HCPCS: 99214 ==

== ENCOUNTER → 2020-10-14 12:55 | Outpatient (BNVA) | payer OTHER, SELFPAY | PROVIDERS: PCP Internal Medicine; Visit Provider Anesthesiology Pain Medicine | DX: M48.062 Spinal stenosis, lumbar region with neurogenic claudication (principal); M54.16 Radiculopathy, lumbar region; Z79.891 Long term (current) use of opiate analgesic; Z87.891 Personal history of nicotine dependence | CPT/HCPCS: 64483; 64484; J1100; J3490 ==

== ENCOUNTER → 2020-10-28 10:26 | Outpatient (BNVA) | payer OTHER, SELFPAY | PROVIDERS: PCP Internal Medicine; Visit Provider Anesthesiology Pain Medicine | DX: M48.062 Spinal stenosis, lumbar region with neurogenic claudication (principal); M43.16 Spondylolisthesis, lumbar region; M47.816 Spondylosis without myelopathy or radiculopathy, lumbar region; M51.17 Intervertebral disc disorders with radiculopathy, lumbosacral region; M62.830 Muscle spasm of back; M79.604 Pain in right leg; Z79.891 Long term (current) use of opiate analgesic | CPT/HCPCS: 99214 ==

== ENCOUNTER → 2020-12-09 09:48 | Outpatient (BNVA) | payer OTHER, SELFPAY | PROVIDERS: PCP Internal Medicine; Visit Provider Anesthesiology Pain Medicine | DX: M48.062 Spinal stenosis, lumbar region with neurogenic claudication (principal); M47.816 Spondylosis without myelopathy or radiculopathy, lumbar region; M43.16 Spondylolisthesis, lumbar region; M51.17 Intervertebral disc disorders with radiculopathy, lumbosacral region; M79.604 Pain in right leg; M62.830 Muscle spasm of back; Z79.891 Long term (current) use of opiate analgesic | CPT/HCPCS: 99214 ==

== ENCOUNTER → 2020-12-17 12:46 | Outpatient (BNVA) | payer OTHER, SELFPAY | PROVIDERS: PCP Internal Medicine; Visit Provider Anesthesiology Pain Medicine | DX: M54.16 Radiculopathy, lumbar region (principal); M48.062 Spinal stenosis, lumbar region with neurogenic claudication; Z79.891 Long term (current) use of opiate analgesic | CPT/HCPCS: 64483; 64484; J1100; J3490 ==

== ENCOUNTER → 2020-12-31 10:54 | Outpatient (BNVA) | payer OTHER, SELFPAY | PROVIDERS: PCP Internal Medicine; Visit Provider Anesthesiology Pain Medicine | DX: M48.062 Spinal stenosis, lumbar region with neurogenic claudication (principal); M43.16 Spondylolisthesis, lumbar region; M51.17 Intervertebral disc disorders with radiculopathy, lumbosacral region; M47.816 Spondylosis without myelopathy or radiculopathy, lumbar region; M79.604 Pain in right leg; M62.830 Muscle spasm of back; Z79.891 Long term (current) use of opiate analgesic; Z87.891 Personal history of nicotine dependence | CPT/HCPCS: 99214 ==

== ENCOUNTER → 2021-01-28 09:48 | Outpatient (BNVA) | payer OTHER, SELFPAY | PROVIDERS: PCP Internal Medicine; Visit Provider Anesthesiology Pain Medicine | DX: M48.062 Spinal stenosis, lumbar region with neurogenic claudication (principal); M51.17 Intervertebral disc disorders with radiculopathy, lumbosacral region; M43.16 Spondylolisthesis, lumbar region; M47.816 Spondylosis without myelopathy or radiculopathy, lumbar region; M62.830 Muscle spasm of back; M79.604 Pain in right leg; Z79.891 Long term (current) use of opiate analgesic | CPT/HCPCS: 99214 ==

== ENCOUNTER → 2021-02-12 08:16 | Outpatient (BNVA) | payer OTHER, SELFPAY | PROVIDERS: PCP Internal Medicine; Visit Provider Orthopaedic Surgery | DX: M48.062 Spinal stenosis, lumbar region with neurogenic claudication (principal); Z20.822 Contact with and (suspected) exposure to COVID-19 | CPT/HCPCS: 87635 ==

== ENCOUNTER 2021-02-16 07:43 | Day surgery (SDC) | payer OTHER, SELFPAY ==
[2021-02-12 08:56] VITALS: BMI 26.1
--- NOTE | 2021-02-12 09:31 | P.ANESASSM_ITS ---
Pre-Anesthetic Assessment Pre-Anesthetic Assessment: Height/Weight: Height 1.75 m Weight 80.286 kg Preop Diagnosis: Symptomatic cholelithiasis and umbilical hernia Proposed Procedure: Operation Date: 02/16/21 09:30 Proposed Procedures p Lumbar Spine Decompression L4/5 L5/S1 [id number] M48.062(Not Applicable) - Liliana Jimenez, DO Was Beta Gris taken within 24 hours: Yes Was Clonidine taken within 24 hours: N/A Social: Social History: Tobacco and No alcohol Exam: Pre-Anes Outpt Exam: alert, oriented x 3, clear to auscultation bilaterally and regular rate & rhythm Airway: Submandibular: WNL Cervical ROM: WNL MP: 2 Dentition: False Pulmonary: Pulmonary: COPD CV/HEM: CV/HEM: HTN Metabolic: Metabolic: Hyperlipidemia Musc/skel: Musc/skel: Lower Back Pain Anesthetic Plan: ASA status: 3 Anesthesia: General Risk of > 500 ml blood loss (7ml/kg in children): No PFSH Anesthesia PFSH: Medical History Intervertebral disc disorder with radiculopathy of lumbosacral region Lumbar stenosis with neurogenic claudication Osteoarthritis of lumbar spine Spondylolisthesis at L4-L5 level Symptomatic cholelithiasis Surgical History Amputation of digit of right hand H/O hernia repair Family History Grandfather Cancer Mother Hypertension Social History Second hand smoke exposure: No Alcohol intake: current Household members: significant other Marital status: Life Partner Current occupational status: employed 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
[2021-02-16] VITALS (11 sets, daily range): BP systolic 130–152; BP diastolic 70–89; PULSE 79–92; RESP 12–21; TEMP 36.1–36.8; O2SAT 94–100
--- NOTE | 2021-02-16 | XR_ITS ---
WS: [id number] Exam: XR lumbar spine 2-3V* [id number] Date/Time of Exam: 02/16/2021 12:00 AM Reason For Exam: spinal stenosis lumbar 3 anterior posterior intraoperative C-arm images of the lumbar spine are submitted for evaluation. One image depicts a metallic marker is positioned over the upper plate of L5. Additional images demon strate a metallic port positioned over the L4-5 and L5-S1 disc levels. No other significant finding o n this limited series.
--- NOTE | 2021-02-16 | SCC_ITS ---
Procedure Done: 1. Bilateral L4/5 laminectomy with partial facetectomies 2. Bilateral L5/S1 laminectomy with partial facetectomies 18.8 seconds of fluoroscopic guidance, for a cumulative dose of 8.18 mGy, was provided to Dr. Jimenez by the radiology department. C-arm images of the lumbar spine were saved for the patient's permanent record. [facility]
[2021-02-16] MEDS: sodium chloride 0.9% 1,000 ML 30 ML IV (08:37)
--- NOTE | 2021-02-16 08:48 | P.ANESUD_ITS ---
Pre-Anesthetic Update Pre-Anesthetic Assessment: Date of Surgery/Procedure: 02/16/21 Preop Suellen gnosis: Lumbar stenosis with Neurogenic Claudication Proposed Procedure: Operation Date: 02/16/21 09:30 Proposed Procedures p Lumbar Spine Decompression L4/5 L5/S1 16787 [id number] M48.062(Not Applicable) - Kemal Jimenez, DO Any changes to Pre-Anesthetic Assessment?: No Last Intake: Intake Last Liquid Date 02/15/21 Last Liquid Time 21:00 Last Solid Date 02/15/21 Last Solid Time 21:00 Vitals: Temperature 97.3 F L 02/16/21 07:53 Temperature Source Temporal Artery S can 02/16/21 07:53 Pulse Rate 82 02/16/21 07:53 Pulse Rhythm 02/16/21 07:54 Pulse Strength 3+ Normal 02/16/21 07:54 Respiratory Rate 17 02/16/21 07:53 Blood Pressure 142/89 02/16/21 07:53 Blood Pressure Carmen n 106 02/16/21 07:53 Pulse Oximetry 100 02/16/21 07:53 Oxygen Delivery Me thod 02/16/21 07:54 Exam: Pre-Anes Outpt Exam: alert, oriented x 3, clear to auscultation bilaterally and regular rate & rhythm Cardiac Studies: No Data to Display
--- NOTE | 2021-02-16 09:47 | PM.HP ---
Providers/Chief Complaint Primary Care Provider: Denise Vincent MD Chief Complaint: Spinal Stenosis History of Present Illness Gertrude Tan is a 61 year old male ower back pain. Patient rates pain at 6 out of 10 in clinic today. Onset: chronic Duration: years Characteristics: sharp, pressure Severity: 6 Location: Lower back Radiating symptoms: bilateral legs, right leg worse Aggravating factors: bending, twisting, stooping, standing for long periods of time. Walking any distance causes pain. Pain keeps patient up at night. Alleviating factors: muscle relaxer Neuro deficits: bilateral legs numbness, tingling, weakness Prior tx: steroid injections, nerve burning, epiderals Goals: open Review of Systems Narrative: General ROS: negative for weight changes, fever ENT ROS: negative for nasal congestion, drainage or bleeding, sore throat, dysphagia or ear pain Eyes: PERRL Hematological and Lymphatic ROS: negative for swollen glands or abnormal bleeding Endocrine ROS: negative for polyuria/polydpsia or new changes in weight Respiratory ROS: negative for cough, shortness of breath, or wheezing Cardiovascular ROS: negative for chest pain or dyspnea on exertion Gastrointestinal ROS: negative for reflux, abdominal pain, change in bowel habits, or black or bloody stools Musculoskeletal ROS: negative for back pain, neck pain, or joint pain or swelling except for current problem Neurological ROS: negative for TIA or stoke symptoms Skin: no rashes Medications/Allergies Home Medications Medication Instructions Recorded Confirmed Last Taken Type aspirin 81 mg tablet,delayed 81 mg PO DAILY 07/26/19 02/16/21 02/13/21 History release cetirizine 10 mg capsule 10 mg PO DAILY 07/26/19 02/16/21 02/15/21 History omega-3 fatty acids 1,000 mg 1,000 mg PO DAILY 07/26/19 02/16/21 02/15/21 History capsule pantoprazole 40 mg tablet,delayed 40 mg PO DAILY 07/26/19 02/16/21 02/15/21 History release metoprolol tartrate 25 mg PO BID 01/07/20 02/16/21 02/15/21 History tizanidine 4 mg tablet 4 mg PO BID PRN #60 tab 01/28/21 02/16/21 02/15/21 Rx tramadol 50 mg tablet 50 mg PO TID PRN #90 tab 01/28/21 02/16/2102/15/21 Rx atorvastatin 40 mg PO DAILY 02/12/21 02/16/21 02/15/21 History Allergies Allergy/AdvReac Type Severity Reaction Status Date / Time No Known Allergies Allergy Verified 02/12/21 08:52 PFSH Acute PFSH: Medical History Intervertebral disc disorder with radiculopathy of lumbosacral region Lumbar stenosis with neurogenic claudication Osteoarthritis of lumbar spine Spondylolisthesis at L4-L5 level Symptomatic cholelithiasis Surgical History Amputation of digit of right hand H/O hernia repair Family History Grandfather Cancer Mother Hypertension Social History Second hand smoke exposure: No Alcohol intake: current Household members: significant other Marital status: Life Partner Current occupational status: employed 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 GENERAL: Patient in no acute distress. CARDIAC: Regular rate and rhythm. CHEST: Normal inspiratory effort, normal respiratory rate. ABDOMEN: Soft and nontender. SKIN: Clear, warm and intact. NEURO?PSYCH: The patient is alert and oriented to person, place and time. Sensorv /SILT Motor StrengthShoulder abduction C5 5/5Wrist extension C6 5/5Elbow extension C7 5/5Hand Medical Scheduler C8 5/5Finger abduction T15/5 Radial/ Ulnar/ Median n intact LowerSensory (SILT)Motor StrengthHin flexion L2/3Ant/inner thigh 5/5Hip adduction L2/3 5/5Knee extension L4 Lat thigh, 5/5Toe dorsiflexion L5 5/5Ankle dorsiflexion L5/ E82Xmyahbo flexion S1 5/5 DTRBleeps 2+Triceps 2+Brachioradialis 2+Patellar 2+Achilles 2+ MUSCULOSKELETAL: [] UPPEREXTREMITIES: The patient had full active ROM in fingers, wrist, elbow, and shoulder. The patient demonstrated ability to fully flex/extend/abduct/adduct fingers, make ok sign, cross 2nd/3rd digits, extend 1st digit fully.. Radial pulse 2+, CR<2 seconds. LOWER EXTREMITIES: Pt has full, active ROM of toes, ankle, knee, and hip. Dorsalis pedis/posterior tibialis pulses 2+, CR<2 seconds. SPINE: Skin warm, dry, intact. A&P Assessment and plan (1) Lumbar stenosis with neurogenic claudication: L4/5 and L5/S1 MIS decompression Status: Acute Attestations Medical Necessity Statement*: failed conservative tx Coding Level of Care Code Acute Painting Machine Operator for [facility] Diagnoses Lumbar stenosis with neurogenic claudication M48.062
--- NOTE | 2021-02-16 11:30 | P.OP_ITS ---
Operative Report Date of procedure: February 16, 2021 Pre-op Diagnosis: Lumbar stenosis with Neurogenic Claudication Post-op diagnosis: same Procedure Done: 1. Bilateral L4/5 laminectomy with partial facetectomies 2. Bilateral L5/S1 laminectomy with partial facetectomies Surgeon: Kemal Jimenez Application Integration Specialist: Rudy Carolina Application Integration Specialist: The surgical device sales representative, Rudy Carolina, EVETTE was needed for his expertise under the microscope. He was important and necessary throughout the procedure to complete in a safe and timely manner. He assisted with patient positioning prepping and draping tissue retraction suctioning of the operative field protection of the dural sac and tissue closure Anesthesia: General Estimated blood loss (mL): 10 Condition: stable Disposition: PACU Procedure: 1. Bilateral L4/5 laminectomy with partial facetectomies 2. Bilateral L5/S1 laminectomy with partial facetectomies Patient is brought to the operative suite. After undergoing anesthesia they are placed in the prone position. All areas of impingement are well padded. Patient is then prepped and draped in the normal sterile fashion. A skin incision is made over the L4/5 level. This is confirmed under c-arm guidance. A series of dilators are passed and the tubular retractor is docked on the L4 lamina. A bovie is used to clear the soft tissue off the lamina and the L 4/5 facet joint. A high speed yovany is then used to perform the laminectomy and take down the medial aspect of the L 4/5 facet joint. A kerrison rongeure was then used to take down the remaining lamina and smooth the edged of the laminectomy up to the point where the ligamentum flavum attaches. Attention was then brought to the medial aspect of the facet joint. The remaining medial aspect of the superior and inferior aspect of the facet joint were taken down with the kerrison from the pedicle of L4 to L 5. The facet joint had significant hypertrophy. Attention was then brought to the Ligamentum Flavum. The ligament was taken down from the lamina of L4 to L5 and out medially to the remaining facet joint. The ligament was thick. The dura was then exposed. The dura was in good repair. The L4 nerve was then traced with a curette out the L4/5 foramen and found to be adequately decompressed. The L5 nerve was traced with a curette around the L5 pedicle. The lateral recess was opened with a kerrison helping to further decompress the L5 nerve. The tubular retractor was then tilted to the contralateral side. The bovie was used to take down the soft tissue on the spinous process. The high speed yovany was used to take down the spinous process and then the contralateral lamina of L4. The kerrison rongeur was used to take down the remaining lamina to the point where the ligamentum flavum attached and the ligamentum flavum was taken down from L4 to L5. The kerrison rongeur was then used to reach across and take down the medial aspect of the contralateral L4/5 facet joint.The currete was used to trace the contralateral L4 nerve out the L4/5 foramen to make sure it was decompressed adequatesly and the L5 was traced around the L5 pedicle. The lateral recess was opened further with the kerrison to ensure the L5 is adeq uately decompressed. Wound is then irrigated copiously with saline and surgiflo is used to stop any bleeding. The tubular retractor is removed and A skin incision is made over the L5/S1 level. This is confirmed under c-arm guidance. A series of dilators are passed and the tubular retractor is docked on the L5 lamina. A bovie is used to clear the soft tissue off the lamina and the L 5/S1 facet joint. A high speed yovany is then used to perform the laminectomy and take down the medial aspect of the L 5/S1 facet joint. A kerrison rongeure was then used to take down the remaining lamina and smooth the edged of the laminectomy up to the point where the ligamentum flavum attaches. Attention was then brought to the medial aspect of the facet joint. The remaining medial aspect of the superior and inferior aspect of the facet joint were taken down with the kerrison from the pedicle of L5 to S1. The facet joint had significant hypertrophy. Attention was then brought to the Ligamentum Flavum. The ligament was taken down from the lamina of L5 to S1 and out medially to the remaining facet joint. The ligament was thick. The dura was then exposed. The dura was in good repair. The L5 nerve was then traced with a curette out the L5/S1 foramen and found to be adequately decompressed. The S1 nerve was traced with a curette around the S1 pedicle. The lateral recess was opened with a kerrison helping to further decompress the S1 nerve. The tubular retractor was then tilted to the contralateral side. The bovie was used to take down the soft tissue on the spinous process. The high speed yovany was used to take down the spinous process and then the contralateral lamina of L5. The kerrison rongeur was used to take down the remaining lamina to the point where the ligamentum flavum attached and the ligamentum flavum was taken down from L5 to S1. The kerrison rongeur was then used to reach across and take down the medial aspect of the contralateral L5/S1 facet joint.The currete was used to trace the contralateral L5 nerve out the L5/S1 foramen to make sure it was decompressed adequatesly and the S1 was traced around the S1 pedicle. The lateral recess was opened further with the kerrison to ensure the S1 is adequately decompressed. Wound is then irrigated copiously with saline and surgiflo is used to stop any bleeding. The tubular retractor is removed and the wound is closed with vicryl and monocryl suture. Glue is then used to protect the wound. A sterile dressing is then placed. Patient was then placed in the supine position and transferred to the PACU in stable condition.
[2021-02-16] MEDS: meperidine 50 mg/mL INJ 12.5 MG IVP (11:49)
[2021-02-16] MEDS: ondansetron 2 mg/ML SDV 2 mL 4 MG IVP (12:42)
== END 2021-02-16 13:31 | disposition home or self-care (01) ==
PROVIDERS: PCP Internal Medicine; Visit Provider Orthopaedic Surgery
PROC: (CPT 63005; principal; 2021-02-16 09:30)
DX: M48.062 Spinal stenosis, lumbar region with neurogenic claudication (principal); Z79.82 Long term (current) use of aspirin; Z82.49 Family history of ischemic heart disease and other diseases of the circulatory system; J44.9 Chronic obstructive pulmonary disease, unspecified; I10 Essential (primary) hypertension; E78.5 Hyperlipidemia, unspecified
CPT/HCPCS: 63047; 63048; 72100; 76000; J0690; J1100; J1170; J2175; J2405; J2704; J3010; J3490; J7030

== ENCOUNTER → 2021-03-13 09:08 | Outpatient (BNVA) | payer OTHER, SELFPAY | PROVIDERS: PCP Internal Medicine; Visit Provider Nurse Practitioner Family | DX: Z20.822 Contact with and (suspected) exposure to COVID-19 (principal) | CPT/HCPCS: 87635 ==

== ENCOUNTER 2021-12-28 15:41 | Outpatient (CLI) | payer OTHER, SELFPAY ==
--- NOTE | 2021-12-28 | XR_ITS ---
WS: [id number] CERVICAL SPINE 2 VIEWS HISTORY: ACUTE NECK PAIN/MUSCLE STRAIN COMPARISON: None available. Only AP and lateral films are submitted. C4 and C5 anterolisthesis by 2 mm. No fractures. Disc spaces are mildly narrowed. Hypertrophic endplate osteophytes. Facet joint arthritis and narrowing most sig nificant on the LEFT at C5-6 and C6-7. The lateral masses are aligned. The visualized odontoid is neg ative. Soft tissues are normal. XR/XR cervical spine 3V* [id number] IMPRESSION: 1. Moderate cervical spondylitic changes. No fractures. 2. 2 mm anterolisthesis of C4 and C5.
== END 2021-12-28 15:42 | disposition home or self-care (01) ==
LOC: RAD 15:45
PROVIDERS: PCP Internal Medicine; Visit Provider Nurse Practitioner Family
DX: S16.1XXA Strain of muscle, fascia and tendon at neck level, initial encounter (principal); X58.XXXA Exposure to other specified factors, initial encounter
CPT/HCPCS: 72040

== ENCOUNTER → 2022-01-07 15:01 | Outpatient (BNVA) | payer OTHER, SELFPAY | PROVIDERS: PCP Internal Medicine; Referring Provider Nurse Practitioner Family; Visit Provider Orthopaedic Surgery | DX: M47.22 Other spondylosis with radiculopathy, cervical region (principal); M50.320 Other cervical disc degeneration, mid-cervical region, unspecified level | CPT/HCPCS: 72040 ==

== ENCOUNTER 2022-05-26 08:36 | Day surgery (SDC) | payer BC, MEDICAID, SELFPAY ==
[2022-05-24 11:49] VITALS: BMI 27.1
[2022-05-26 09:03] VITALS: BP 152/92; PULSE 82; RESP 18; TEMP 36.3; O2SAT 97
[2022-05-26] MEDS: sodium chloride 0.9% 1,000 ML 30 ML IV (09:13)
--- NOTE | 2022-05-26 09:52 | ANES.PREANE2 ---
Pre-Anesthetic Assessment Height/Weight: Height 1.75 m Weight 83.461 kg Temp Pulse Resp BP Pulse Ox O2 Del Method 97.4 F L 82 18 152/92 97 05/26/22 09:03 05/26/22 09:03 05/26/22 09:03 05/26/22 09:03 05/26/22 09:03 05/26/22 09:03 Preop Diagnosis: Lumbar stenosis with Neurogenic Claudication Operation Date: 05/26/22 10:30 Proposed Procedures p 54574 Colon Z12.11(Not Applicable) - Rashel Cruz, DO Was Beta Gris taken within 24 hours: Yes Was Clonidine taken within 24 hours: N/A Last intake: Intake Last Liquid Date 05/25/22 Last Liquid Time 22:30 Last Solid Date 05/24/22 Last Solid Time 18:00 Social No alcohol THC daily Exam alert, oriented x 3, clear to auscultation bilaterally and regular rate & rhythm Airway Submandibular: within normal limits Cervical ROM: within normal limits Mallampati: Class I Dentition: full History/ROS No significant history except as noted and No significant complaints Pulmonary None reported CV/HEM Hypertension None reported Hepatic None reported GI None reported Metabolic Hyperlipidemia [facility] Lower Back Pain chronic pain Neuropsych None reported Anesthetic Plan ASA status: 2 Anesthesia: Anesthesia Evaluation and MAC Risk of > 500 ml blood loss (7ml/kg in children): Yes, adequate IV access and fluids planned Medications/Allergies Home Medications Medication Instructions Recorded Confirmed Last Taken Type cetirizine 10 mg capsule (All Day 10 mg PO DAILY 07/26/19 05/24/22 05/24/22 History Allergy (cetirizine)) pantoprazole 40 mg tablet,delayed 40 mg PO DAILY 07/26/19 05/24/22 05/24/22 History release metoprolol tartrate 25 mg tablet 25 mg PO DAILY 01/07/20 05/24/22 05/24/22 History tizanidine 4 mg tablet 4 mg PO BID PRN muscle spasticity 01/28/21 05/24/22 05/23/22 Rx #60 tabs atorvastatin 40 mg tablet 40 mg PO DAILY 02/12/21 05/24/22 05/24/22 History tramadol 50 mg tablet 50 mg PO TID PRN pain #90 tabs 03/10/21 05/24/22 05/23/22 Rx Allergies Allergy/AdvReac Type Severity Reaction Status Date / Time No Known Allergies Allergy Verified 05/24/22 11:45 Current Medications Generic Name Dose Route Start Last Admin Trade Name Haily PRN Reason Stop Dose Admin Sodium Chloride 1,000 mls @ 30 mls/hr 05/26/22 09:00 05/26/22 09:13 Sodium Chloride 0.9% IV 05/27/22 08:59 30 mls/hr .Q24H KARMEN Administration PFSH Anesthesia Medical History Gastroesophageal reflux Hyperlipidemia Hypertension Intervertebral disc disorder with radiculopathy of lumbosacral region Lumbar stenosis with neurogenic claudication Normal colonoscopy Opioid contract exists Osteoarthritis of lumbar spine Spondylolisthesis at L4-L5 level Symptomatic cholelithiasis Surgical History Amputation of digit of right hand H/O hernia repair History of laparoscopic cholecystectomy (~12/2019) Hx of colonoscopy with polypectomy Hx of lumbosacral spine surgery Dr. 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
--- NOTE | 2022-05-26 11:27 | W.PM.OPSUD ---
Surgery/Procedure H&P Update DATE OF PROCEDURE: May 26, 2022 DATE H&P PERFORMED: 04/28/22 H&P UPDATE INFORMATION: I have reviewed H&P completed within last 30 days, I have examined patient prior to procedure and No changes to prior documentation PREOP DIAGNOSIS: Lumbar stenosis with Neurogenic Claudication PLANNED PROCEDURE: Operation Date: 05/26/22 10:30 Proposed Procedures p 14979 Colon Z12.11(Not Applicable) - Rashel Cruz DO
[2022-05-26 11:28] LABS: Glucose Point of Care 92 mg/dL (70-110)
[2022-05-26 11:56] VITALS: BP 136/84; PULSE 70; RESP 14; TEMP 36.1; O2SAT 95
[2022-05-26 12:06] VITALS: BP 132/79; PULSE 72; RESP 14; O2SAT 99
[2022-05-26 12:15] VITALS: BP 122/80; PULSE 72; RESP 16; O2SAT 100
--- NOTE | 2022-05-26 16:37 | ANE.PACU2 ---
Inpatient post-anesthesia follow up: Airway intact: Yes Vital signs: Temperature 97 F Pulse Rate 72 Respiratory Rate 16 Blood Pressure 122/80 Pulse Oximetry 100 Oxygen Delivery Me thod Room Air Oxygen Flow Rate Fraction of Inspir ed Oxygen Hydration adequate: Yes Nausea and vomiting: No Pain level: 2 Mental status: Baseline
== END 2022-05-26 12:30 | disposition home or self-care (01) ==
PROVIDERS: PCP Internal Medicine; Visit Provider Surgery
PROC: 0DJD8ZZ Inspection of Lower Intestinal Tract, Via Natural or Artificial Opening Endoscopic (ICD-10-PCS; CPT 45378; principal; 2022-05-26 10:30)
DX: Z12.11 Encounter for screening for malignant neoplasm of colon (principal); D12.4 Benign neoplasm of descending colon; D12.5 Benign neoplasm of sigmoid colon; Z86.010 Personal history of colon polyps; Z80.0 Family history of malignant neoplasm of digestive organs; I10 Essential (primary) hypertension; E78.5 Hyperlipidemia, unspecified; G89.29 Other chronic pain; M54.9 Dorsalgia, unspecified; Z79.891 Long term (current) use of opiate analgesic; Z79.82 Long term (current) use of aspirin; K21.9 Gastro-esophageal reflux disease without esophagitis
CPT/HCPCS: 36416; 45385; 82962; 88305; J2704; J7030

== ENCOUNTER 2023-07-13 10:33 | Outpatient (CLI) | payer MEDICAID, SELFPAY ==
--- NOTE | 2023-07-13 10:38 | CT_ITS ---
WS: [id number] LDCT LUNG CANCER SCREENING TECHNIQUE: Noncontrast CT of the chest with coronal and sagittal reformatted images. CLINICAL INFORMATION: NICOTINE DEPENDENCE, CIGARETTES COMPARISON: None. DLP: 67.20 mGy.cm DIvol: Mean CTDIvol: 1.20 (mGy) All CT scans at [facility] use at least one of these dose optimization techniques: automat ed exposure control; mA and/or kV adjustment per patient size (includes targeted exams where dose is matched to clinical indication); or iterative reconstruction. FINDINGS: No suspicious pulmonary parenchymal opacities. Lungs are well aerated. No acute pulmonary infiltrates . A few calcified granulomas. Aortic calcification. Normal caliber thoracic aorta. No mediastinal or hilar lymphadenopathy. Calcifi ed hilar nodes. Coronary calcification. Adrenal glands are normal. Cholecystectomy clips. Normal GE junction. Splenic granulomas. No axillary lymphadenopathy. RIGHT anterior chest wall lipoma unchanged since 2019 in the intercostal musculature measuring 3.3 x 1.1 cm. Mild thoracic curve. Mild thoracic kyphosis. CT/CT lung screening [id number] IMPRESSION: LUNG-RADS: 2-Benign Appearance or Behavior FOLLOW UP: 12 Month: Continue annual screening with LDCT
== END 2023-07-13 10:34 | disposition home or self-care (01) ==
LOC: RAD 10:33
PROVIDERS: PCP Internal Medicine; Visit Provider Internal Medicine
DX: Z12.2 Encounter for screening for malignant neoplasm of respiratory organs (principal); F17.200 Nicotine dependence, unspecified, uncomplicated
CPT/HCPCS: 71271

== ENCOUNTER → 2023-09-15 08:00 | Outpatient (BNVA) | payer MEDICAID, SELFPAY | PROVIDERS: PCP Internal Medicine; Visit Provider Nurse Practitioner Family | DX: L57.0 Actinic keratosis (principal); L82.1 Other seborrheic keratosis; L82.0 Inflamed seborrheic keratosis; L85.3 Xerosis cutis; L57.8 Other skin changes due to chronic exposure to nonionizing radiation | CPT/HCPCS: 17000; 17110; 99213 ==

== ENCOUNTER → 2024-09-17 08:11 | Outpatient (BNVA) | payer MEDICAID, SELFPAY | PROVIDERS: PCP Internal Medicine; Visit Provider Nurse Practitioner Family | DX: L57.8 Other skin changes due to chronic exposure to nonionizing radiation (principal); L81.4 Other melanin hyperpigmentation; D22.61 Melanocytic nevi of right upper limb, including shoulder; L81.3 Cafe au lait spots; L82.0 Inflamed seborrheic keratosis; Z78.9 Other specified health status; R20.8 Other disturbances of skin sensation; L53.8 Other specified erythematous conditions; L57.0 Actinic keratosis | CPT/HCPCS: 17000; 17110; 99213 ==

== ENCOUNTER 2024-10-02 08:18 | Outpatient (CLI) | payer MEDICARE, MEDICAID, SELFPAY ==
--- NOTE | 2024-10-02 08:29 | XR_ITS ---
WS: [id number] LEFT HIP HISTORY: PAIN IN L HIP COMPARISON: None available. Right hip: No acute fracture or dislocation. Slight narrowing of the hip joint. Very slight sclerosis along the superior acetabulum. Very mild cortical irregularity involving the surface of the femoral head. No calcified bodies. Scattered plaque in the femoral artery. XR/XR hip LT 2-3V wo/w pel* [id number] IMPRESSION: 1. No hip fracture. 2. Mild early degenerative changes involving the LEFT hip. 3. Scattered atherosclerotic plaque in the LEFT femoral artery.
== END 2024-10-02 08:19 | disposition home or self-care (01) ==
PROVIDERS: PCP Internal Medicine; Visit Provider Internal Medicine
DX: M25.552 Pain in left hip (principal); I70.202 Unspecified atherosclerosis of native arteries of extremities, left leg
CPT/HCPCS: 73502

== ENCOUNTER 2024-10-05 10:47 | Outpatient (CLI) | payer MEDICARE, MEDICAID, SELFPAY ==
--- NOTE | 2024-10-05 10:54 | CT_ITS ---
WS: [id number] LDCT LUNG CANCER SCREENING HISTORY: HX OF TOBACCO USE TECHNIQUE: Axial imaging performed from the apices to 1 cm below the costophrenic angles. Coronal and sagittal reformats are submitted with axial MIP series. All CT scans at [facility] use at least one of these dose optimization techniques: automated exposure control; mA and/or kV adjustment per patient size (includes targeted exams where dose is matched to clinical indication); or iterative reconstruction. DLP: 61.21 mGy.cm DIvol: Mean CTDIvol: 1.10 (mGy) COMPARISON: 07/13/2023 Diagnostic quality: Satisfactory Lungs: Mild pulmonary hyperexpansion. No pulmonary nodule or mass. No lobar collapse. No endobronchial lesions. Heart: Normal size heart with no pericardial effusion.. Other findings: No mediastinal or hilar adenopathy. Very mild atherosclerosis aorta. Normal size pulmonary artery. Small hiatal hernia. Prior cholecystectomy. Splenic granulomata. CT/CT lung screening [id number] IMPRESSION: LUNG-RADS: 1-Negative FOLLOW UP: 12 Month: Continue annual screening with LDCT OTHER FINDINGS (S MODIFIER): None.
== END 2024-10-05 10:48 | disposition home or self-care (01) ==
LOC: RAD 10:48
PROVIDERS: PCP Internal Medicine; Visit Provider Internal Medicine
DX: Z12.2 Encounter for screening for malignant neoplasm of respiratory organs (principal); Z87.891 Personal history of nicotine dependence; K44.9 Diaphragmatic hernia without obstruction or gangrene; Z90.49 Acquired absence of other specified parts of digestive tract; D73.89 Other diseases of spleen
CPT/HCPCS: 71271